=== PATIENT | male | born 1965 | race Caucasian/White ===

== ENCOUNTER 2020-11-11 10:01 | Emergency (ER) | payer MEDICARE, MEDICAID ==
[~2020-11-11] VITALS: Ht 175.3 cm; Wt 120.5 kg
[2020-11-11 10:04] VITALS: Ht 175.3 cm; Wt 120.5 kg
[2020-11-11] MEDS ORDERED: AMBIEN5 MG PO (10:10)
[2020-11-11] MEDS ORDERED: BENZTROPINE MESY2 MG PO (10:11)
[2020-11-11] MEDS ORDERED: ATIVAN2 MG IM (10:11)
[2020-11-11] MEDS ORDERED: CYMBALTA30 MG PO (10:12)
[2020-11-11] MEDS ORDERED: DIASTAT ACUDIAL10 MG RC (10:13)
[2020-11-11] MEDS ORDERED: DEPAKOTE500 MG PO (10:13)
[2020-11-11] MEDS ORDERED: STOOL SOFTENER100 M1 PO (10:14)
[2020-11-11] MEDS ORDERED: PROVERA10 MG PO (10:14)
[2020-11-11] MEDS ORDERED: ERGOCALCIF50000 UNIT PO (10:14)
[2020-11-11] MEDS ORDERED: EC-NAPROSYN500 MG PO (10:15)
[2020-11-11] MEDS ORDERED: OMEPRAZOLE20 M1 PO (10:15)
[2020-11-11] MEDS ORDERED: RISPERDAL1 MG PO (10:16)
[2020-11-11] MEDS ORDERED: TEGRETOL XR100 MG PO (10:17)
[2020-11-11] MEDS ORDERED: SEROQUEL400 MG PO (10:17)
[2020-11-11] MEDS ORDERED: TOPAMAX200 MG PO (10:18)
[2020-11-11] MEDS ORDERED: VALIUM10 MG PO (10:18)
[2020-11-11] MEDS ORDERED: VITAMIN C500 M1 PO (10:19)
[2020-11-11] MEDS ORDERED: VIMPAT100 MG PO (10:19)
[2020-11-11] MEDS ORDERED: VITAMIN D-32000 UNIT PO (10:20)
[2020-11-11] MEDS ORDERED: TEGRETOL200 MG PO (10:23)
[2020-11-11] MEDS ORDERED: SEROQUEL100 MG PO (10:24)
[2020-11-11 10:31] LABS: CALC OSMOLALITY 285 mosm/kg (275-300); CALCIUM 8.7 mg/dL (8.5-10.1); CARBON DIOXIDE 25.6 mmol/L (21.0-32.0); CHLORIDE - SERUM 108 mmol/L (98-107); CREATININE - SERUM 1.2 mg/dL (0.6-1.3); GLUCOSE 88 mg/dL (74-106); POTASSIUM - SERUM 4.1 mmol/L (3.5-5.1); SODIUM 142 mmol/L (136-145); UREA NITROGEN 23 mg/dL (7-18); eGFR NON AFRICAN AMERICAN 67 mL/min (90-120)
[2020-11-11 10:32] LABS: BASOPHILS 0.5 % (0-2); HEMATOCRIT 38.1 % (42.0-54.0); IMMATURE GRANULOCYTES 0.7 % (0-5); LYMPHOCYTE ABS# 1.77 10x3/uL (1.32-3.57); LYMPHOCYTES 29.9 % (15-50); MCH 32.1 pg (26.0-34.0); MCHC 34.1 g/dL (31.0-37.0); MCV 94.1 fL (80.0-100.0); MEAN PLATELET VOLUME 9.2 fL (7.4-10.4); MONOCYTES 7.4 % (2-11); NEUTROPHIL ABS# 3.58 10x3/uL (1.78-5.38); NEUTROPHILS 60.5 % (40-80); RBC 4.05 10x6/uL (4.20-6.10); RDW 12.8 % (11.5-14.5); WBC 5.9 10x3/uL (4.8-10.8)
[2020-11-11 10:34] LABS: PLATELET COUNT 197 10x3/uL (130-400)
[2020-11-11 10:48] LABS: ALBUMIN 3.9 g/dL (3.4-5.0); ALKALINE PHOSPHATASE 104 U/L (30-120); ALT (SGPT) 16 U/L (10-68); BILIRUBIN - TOTAL 0.41 mg/dL (0.2-1.3); CARBAMAZEPINE (TEGRETOL) 6.5 ug/mL (4.0-12.0); CKMB 1.9 U/L (0.0-3.6); CREATINE KINASE 213 UL (21-232); MAGNESIUM - SERUM 2.1 mg/dL (1.8-2.4); PROTEIN - SERUM 7.2 g/dL (6.4-8.2); THYROID STIMULATING HORMONE 0.56 uIU/mL (0.36-3.74); TROPONIN-I < 0.017 ng/mL (0.000-0.060); VALPROIC ACID (DEPAKOTE) 52.7 ug/mL (50.0-100.0)
[2020-11-11 11:59] LABS: UDS - AMPHET NEGATIVE QUAL (NEGATIVE); UDS - BARB NEGATIVE QUAL (NEGATIVE); UDS - BENZO POSITIVE QUAL (NEGATIVE); UDS - COCAINE NEGATIVE QUAL (NEGATIVE); UDS - THC NEGATIVE QUAL (NEGATIVE)
[2020-11-11 12:11] LABS: UDS - OPIATE NEGATIVE QUAL (NEGATIVE); UDS - PCP NEGATIVE QUAL (NEGATIVE)
[2020-11-11 12:17] LABS: AMORPHOUS SEDIMENT <1+ LPF (NONE SEEN); BACTERIA FEW HPF (NONE SEEN); BILIRUBIN NEGATIVE (NEGATIVE); KETONE SMALL mg/dL (NEGATIVE); NITRITE NEGATIVE (NEGATIVE); SQUAMOUS EPITHELIAL OCC HPF (0-4); UROBILINOGEN 4 mg/dL (< 2); WHITE CELLS - URINE RARE HPF (0-1)
[2020-11-11 14:28] VITALS: BP 134/89
== END 2020-11-11 14:27 ==
LOC: D.ER 10:01
PROVIDERS: Family Medicine
DX: F20.9 Schizophrenia, unspecified (principal); R41.82 Altered mental status, unspecified; G40.909 Epilepsy, unspecified, not intractable, without status epilepticus; R53.1 Weakness; T50.905A Adverse effect of unspecified drugs, medicaments and biological substances, initial encounter

== ENCOUNTER 2020-11-16 11:10 | Inpatient (IN) | payer MEDICARE, MEDICAID ==
[~2020-11-16] VITALS: Ht 175.3 cm; Wt 90.7 kg
[~2020-11-16 11:10] MED LIST: AMBIEN5 MG PO; ATIVAN2 MG IM; BENZTROPINE MESY2 MG PO; CYMBALTA30 MG PO; DEPAKOTE500 MG PO; DIASTAT ACUDIAL10 MG RC; EC-NAPROSYN500 MG PO; ERGOCALCIF50000 UNIT PO; OMEPRAZOLE20 M1 PO; PROVERA10 MG PO; RISPERDAL1 MG PO; SEROQUEL100 MG PO; SEROQUEL400 MG PO; STOOL SOFTENER100 M1 PO; TEGRETOL XR100 MG PO; TEGRETOL200 MG PO; TOPAMAX200 MG PO; VALIUM10 MG PO; VIMPAT100 MG PO; VITAMIN C500 M1 PO; VITAMIN D-32000 UNIT PO
[2020-11-16 11:50] LABS: BASOPHILS 0.6 % (0-2); EOSINOPHILS 1.1 % (0-7); HEMATOCRIT 37.7 % (42.0-54.0); HEMOGLOBIN 13.2 g/dL (13.5-17.5); LYMPHOCYTES 35.4 % (15-50); MCH 32.1 pg (26.0-34.0); MCV 91.7 fL (80.0-100.0); MEAN PLATELET VOLUME 10.3 fL (7.4-10.4); MONOCYTES 9.3 % (2-11); NEUTROPHIL ABS# 3.26 10x3/uL (1.78-5.38); NEUTROPHILS 52.6 % (40-80); PLATELET COUNT 213 10x3/uL (130-400); RBC 4.11 10x6/uL (4.20-6.10); RDW 12.5 % (11.5-14.5); WBC 6.2 10x3/uL (4.8-10.8)
[2020-11-16 12:02] LABS: CALC OSMOLALITY 273 mosm/kg (275-300); CALCIUM 8.3 mg/dL (8.5-10.1); CARBON DIOXIDE 23.2 mmol/L (21.0-32.0); CHLORIDE - SERUM 104 mmol/L (98-107); GLUCOSE 84 mg/dL (74-106); SODIUM 136 mmol/L (136-145); UREA NITROGEN 20 mg/dL (7-18); eGFR NON AFRICAN AMERICAN 83 mL/min (90-120)
--- NOTE | 2020-11-16 12:05 | NUR ---
ASSIST PT TO SIDE OF BED FOR URINE SAMPLE
[2020-11-16 12:07] LABS: APTT 31.4 SECONDS (22.8-39.4); INR 1.09 (0.85-1.17); PROTIME 13.1 SECONDS (11.6-15.0)
[2020-11-16 12:15] LABS: BILIRUBIN NEGATIVE (NEGATIVE); KETONE SMALL mg/dL (NEGATIVE); NITRITE NEGATIVE (NEGATIVE); UROBILINOGEN 4 mg/dL (< 2)
[2020-11-16 12:18] LABS: ALBUMIN 3.9 g/dL (3.4-5.0); ALKALINE PHOSPHATASE 99 U/L (30-120); ALT (SGPT) 21 U/L (10-68); BILIRUBIN - TOTAL 0.44 mg/dL (0.2-1.3); CKMB 1.5 U/L (0.0-3.6); CREATINE KINASE 82 UL (21-232); PROTEIN - SERUM 7.1 g/dL (6.4-8.2); THYROID STIMULATING HORMONE 0.87 uIU/mL (0.36-3.74)
[2020-11-16 12:20] LABS: TROPONIN-I < 0.017 ng/mL (0.000-0.060)
[2020-11-16 12:39] LABS: UDS - AMPHET NEGATIVE QUAL (NEGATIVE); UDS - BARB NEGATIVE QUAL (NEGATIVE); UDS - BENZO POSITIVE QUAL (NEGATIVE); UDS - COCAINE NEGATIVE QUAL (NEGATIVE); UDS - OPIATE NEGATIVE QUAL (NEGATIVE); UDS - PCP NEGATIVE QUAL (NEGATIVE); UDS - THC NEGATIVE QUAL (NEGATIVE)
--- NOTE | 2020-11-16 13:58 | NUR ---
PT REPORT GIVEN TO TRENT GUAMAN, WITH VERBAL AKNOWLEDGEMENT OBTAINED.
[2020-11-16] MEDS ORDERED: CYMBALTA60 MG PO (14:28)
[2020-11-16] MEDS ORDERED: NAPROSYN500 MG PO (14:33)
[2020-11-16] MEDS ORDERED: AMBIEN10 MG PO (14:36)
[2020-11-16] MEDS ORDERED: RISPERDAL1 MG PO (14:37)
[2020-11-16] MEDS ORDERED: ERGOCALCIF50000 UNIT PO (14:39)
--- NOTE | 2020-11-16 14:40 | NUR ---
VERIFIED MEDICATIONS WITH PATIENT'S PHARMACY [facility].
--- NOTE | 2020-11-16 15:03 | NUR ---
SPOKE WITH OBI GUAMAN AT [facility], WHERE PATIENT LIVES, WHO GAVE BACKGROUND ON PATIENT. STATES PATIENT HAS HAD AN INCREASED AMOUNT OF SEIZURES AND FALLS OVER THE PAST TWO WEEKS. 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 SPOKE WITH DR LONG TO INFORM HIM OF BACKGROUND. DR LONG STATES THAT HE DOESN'T PLAN TO DO IMAGING AND WILL PROBABLY NEED TO SPEAK WITH DR FIGUEROA WHO IS PATIENT'S MCC DOCTOR ABOUT MEDICATIONS. STATES WILL LIKELY SEE PATIENT TOMORROW. THINKS PATIENT MAY NOT BE HAVING SEIZURES BUT THAT "THIS MIGHT BE HIS SCHIZOPHRENIA."
--- NOTE | 2020-11-16 15:15 | NUR ---
PATIENT APPEARS AGGITATED AND GETTING UP OOB. TWO NURSES IN ROOM ASSISTING PATIENT. CLEANED AND PLACED IN GOWN. HELPED BACK TO BED. DENIES FURTHER NEEDS. ALARM ON.
[2020-11-16 15:17] VITALS: BP 143/84; BMI 29.6
--- NOTE | 2020-11-16 15:33 | NUR ---
PATIENT AGGRESSIVE BUT NOT COMBATIVE. REFUSING TO SIT DOWN. STANDING IN DOORWAY. THREE NURSES TRYING TO CALM AND REDIRECT PATIENT WITHOUT SUCCESS. SPOKE WITH DR FIGUEROA WHO GAVE ORDERS FOR DANIELA BED AND PRN ATIVAN.
--- NOTE | 2020-11-16 16:00 | NUR ---
ASSESSMENT PER FLOW SHEET. PATIENT IS WITHOUT DISRESS. PATIENT BECAME ANGRY AND JERKING AWAY FROM STAFF WHEN TRYING TO ASSIST HIM. CALLED MORE STAFF TO ROOM TO ASSIST AFTER PATIENT PUSHED ME OUT OF BATHROOM AND SLAMMED DOOR. HIS IV HAS BEEN PULLED OUT WITH CATH TIP INTACT. PATIENT REFUSES TO GET BACK IN BED OR SIT IN CHAIR. OMI GAGE RN HAS SPOKEN WITH DR FIGUEROA AND ORDERS HAVE BEEN RECIEVED AND INITIATED.
--- NOTE | 2020-11-16 16:07 | NUR ---
PATIENT PLACED IN DANIELA BED AND PRN ATIVAN GIVEN.
--- NOTE | 2020-11-16 16:38 | NUR ---
PATIENT PULLED OUT IV TO RIGHT HAND. STATES "WHY WOULD I WANT THAT." PATIENT ALSO TOOK OFF SCDS AND STATES "TAKE THESE OUT." IV CATH AND J LOOP REMOVED FROM DANIELA BED WELL SCD STOCKINGS.
--- NOTE | 2020-11-16 18:19 | NUR ---
FAXED ORDERS FOR NEW MEDS TO [facility], PER REQUEST TO BE ABLE TO BRING MEDS TO FLOOR.
[2020-11-16 19:53] VITALS: BP 138/81
--- NOTE | 2020-11-16 23:28 | NUR ---
UNZIPPED BED. GAVE PT NIGHTTIME MEDS. OFFERED TOILETING AND DRINK. CALL LIGHT IN REACH.
[2020-11-17 00:22] VITALS: BP 129/74
[2020-11-17 04:52] VITALS: BP 123/83
[2020-11-17 06:21] LABS: BASOPHILS 0.8 % (0-2); EOSINOPHILS 1.3 % (0-7); HEMATOCRIT 38.7 % (42.0-54.0); HEMOGLOBIN 13.6 g/dL (13.5-17.5); IMMATURE GRANULOCYTES 0.8 % (0-5); LYMPHOCYTE ABS# 2.21 10x3/uL (1.32-3.57); MCH 32.2 pg (26.0-34.0); MCHC 35.1 g/dL (31.0-37.0); MCV 91.5 fL (80.0-100.0); MEAN PLATELET VOLUME 11.3 fL (7.4-10.4); NEUTROPHIL ABS# 2.99 10x3/uL (1.78-5.38); NEUTROPHILS 50.1 % (40-80); RBC 4.23 10x6/uL (4.20-6.10); RDW 12.5 % (11.5-14.5)
[2020-11-17 06:37] LABS: PLATELET COUNT 128 10x3/uL (130-400)
--- NOTE | 2020-11-17 09:03 | NUR ---
assisted patient to restroom, opened nic bed so patient can eat, he wants to "go back home" told patient i am waiting for orders before we can send him back. no other needs at this time, continue with plan of care
[2020-11-17 09:22] VITALS: BP 127/80
[2020-11-17 09:24] LABS: ALKALINE PHOSPHATASE 101 U/L (30-120); ALT (SGPT) 20 U/L (10-68); BILIRUBIN - TOTAL 0.53 mg/dL (0.2-1.3); CALC OSMOLALITY 276 mosm/kg (275-300); CALCIUM 8.6 mg/dL (8.5-10.1); CARBON DIOXIDE 20.9 mmol/L (21.0-32.0); CHLORIDE - SERUM 106 mmol/L (98-107); GLUCOSE 94 mg/dL (74-106); POTASSIUM - SERUM 4.4 mmol/L (3.5-5.1); PROTEIN - SERUM 7.2 g/dL (6.4-8.2); SODIUM 138 mmol/L (136-145); UREA NITROGEN 16 mg/dL (7-18)
[2020-11-17 09:29] LABS: CREATININE - SERUM 0.7 mg/dL (0.6-1.3); eGFR NON AFRICAN AMERICAN > 90 mL/min (90-120)
--- NOTE | 2020-11-17 12:30 | NUR ---
PATIENT ASLEEP WHEN DR LONG WENT TO SPEAK TO HIM, NO SIGNS OF DISTRESS, CALL LIGHT IN REACH WILL WAKE PATIENT FOR LUNCH. CONTINUE WITH PLAN OF CARE
[2020-11-17 14:42] VITALS: BP 120/74
--- NOTE | 2020-11-17 14:49 | NUR ---
I have reviewed this patient and I concur with the Shift Assessment completed by the Licensed Practical Nurse today this shift.
[2020-11-17 18:55] VITALS: BP 127/83
[2020-11-17 20:00] VITALS: BP 125/77
--- NOTE | 2020-11-17 21:52 | NUR ---
PT ASLEEP, YET EASY TO WAKE UP, IN DANIELA BED. NO COMPLAINTS OF PAIN NOR DISTRESS NOTED. PT IS CONFUSED. TOOK MEDS WHOLE WITH NO DIFFICULTY. BED IN LOWEST POSITION WITH CALL RANDALL LIGHT IN REACH.
[2020-11-18] VITALS: BP 98/68
[2020-11-18 04:00] VITALS: BP 118/73
--- NOTE | 2020-11-18 09:00 | NUR ---
ASSISTED PATIENT UP TO RESTROOM, CHANGED LINENS IN BED, PATIENT ATE BREAKFAST AND TOOK MORNING MEDICATIONS, THEN WENT BACK TO SLEEP MORNING MEDICATIONS INCLUDED VALIUM. CONTINUE WITH PLAN OF CARE
[2020-11-18 09:34] VITALS: BP 126/90
[2020-11-18] MEDS ORDERED: TEGRETOL200 MG PO (10:37)
--- NOTE | 2020-11-18 12:02 | MORECARE ---
CASE MANAGEMENT DISCHARGE SUMMARY PATIENT: ANDREZ MEJIA UNIT: [id number] ADM DATE: 11/16/20 AGE: 55 : 67 SEX: M ROOM/BED: D.2217 AUTHOR: SURYA,DOC PHYSICIAN: REFERRING PHYSICIAN: JESUS ALBERTO QUIÑONES MD DATE OF SERVICE: 11/18/20 Case Management Discharge Planning Summary COMMENTS ENTERED DATE: 11/18/20 11:55 CT COMMENT TYPE: Discharge Planning REVIEWER: Diana Andujar CM was unable to visit with patient, per the patients nurse he is going to the bathroom by himself and is ambulatory. His medications were adjusted by Dr Veliz and the patient is asking when he can go home. I called [facility] and they stated that he is a long-term resident and his nurse will be Shagufta. They will pick him up at 1400 today. I will fax clinicals over and Holli Gann will call report DCP REVIEW SUMMARY ANTICIPATED D/C DATE: EXPECTED LOS : CASE STATUS: DCP Initiated INITIAL REVIEW: 11/16/2020 INITIAL REVIEWER: Diana Andujar FINAL DISCHARGE DISPOSITION: 92 : Discharged/Trans to a nursing facility certified under Medicaid but not certified under Medicare FINAL REVIEWER: FINAL REVIEW DATE: D[facility] Questions & Answers QUESTION: ANSWER : PATIENT: ANDREZ MEJIA ENCOUNTER: [id number] MEDICAL RECORD#: [id number] ADMISSION DATE: 11/16/2020 DISCHARGE DATE: ATTENDING MD: DAX: AGE: 55 MARITAL STATUS: S DC PLAN ID: [id number] FACILITY: [facility] PRINTED ON: 11/18/20 12:02 CT All edits/amendments must be made on the electronic document DICTATION DATE: 11/18/201201 ORDER DISPATCHER CHIEF: PORSHA 11/18/20 120 RPT#: [id number] DC DATE: STATUS: ADM IN [facility] [address] [place] [address] END OF REPORT
--- NOTE | 2020-11-18 12:59 | NUR ---
I have reviewed this patient and I concur with the Shift Assessment completed by the Licensed Practical Nurse today this shift.
--- NOTE | 2020-11-18 13:19 | NUR ---
PATIENT IS STILL VERY SEDATED WILL CALL REPORT AND SEE IF THEY CAN WAIT TO PICK PATIENT UP AFTER PICKUP TIME OF 2
[2020-11-18 13:23] VITALS: BP 115/83
--- NOTE | 2020-11-18 14:31 | MORECARE ---
CASE MANAGEMENT DISCHARGE SUMMARY PATIENT: ANDREZ MEJIA UNIT: [id number] ADM DATE: 11/16/20 AGE: 55 : 67 SEX: M ROOM/BED: D.2217 AUTHOR: SURYA,DOC PHYSICIAN: REFERRING PHYSICIAN: JESUS ALBERTO QUIÑONES MD DATE OF SERVICE: 11/18/20 Case Management Discharge Planning Summary COMMENTS ENTERED DATE: 11/18/20 14:17 CT COMMENT TYPE: Discharge Planning REVIEWER: Diana Andujar PER PATIENTS NURSE HE WILL NEED TO BE OUT OF THE DANIELA BED FOR 48 HOURS PRIOR TO DISCHARGE PATIENTS DISCHARGE WILL NEED TO BE ON HOLD TILL THIS CAN HAPPEN ENTERED DATE: 11/18/20 11:55 CT COMMENT TYPE: Discharge Planning REVIEWER: Diana Andujar CM was unable to visit with patient, per the patients nurse he is going to the bathroom by himself and is ambulatory. His medications were adjusted by Dr Veliz and the patient is asking when he can go home. I called [facility] and they stated that he is a long-term resident and his nurse will be Shagufta. They will pick him up at 1400 today. I will fax clinicals over and Holli Gann will call report DCP REVIEW SUMMARY ANTICIPATED D/C DATE: EXPECTED LOS : CASE STATUS: DCP Initiated INITIAL REVIEW: 11/16/2020 INITIAL REVIEWER: Diana Andujar FINAL DISCHARGE DISPOSITION: 92 : Discharged/Trans to a nursing facility certified under Medicaid but not certified under Medicare FINAL REVIEWER: FINAL REVIEW DATE: [facility] Questions & Answers QUESTION: ANSWER : PATIENT: ANDREZ MEJIA ENCOUNTER: [id number] MEDICAL RECORD#: [id number] ADMISSION DATE: 11/16/2020 DISCHARGE DATE: ATTENDING MD: DAX: AGE: 55 MARITAL STATUS: S DC PLAN ID: [id number] FACILITY: [facility] PRINTED ON: 11/18/20 14:31 CT All edits/amendments must be made on the electronic document DICTATION DATE: 11/18/201430 TELEGRAPH EDITOR: PORSHA 11/18/201430 RPT#: [id number] DC DATE: STATUS: ADM IN [facility] [address] [facility] [place] [id number] END OF REPORT
[2020-11-18 18:55] VITALS: BP 115/79
[2020-11-18 20:00] VITALS: BP 117/82
[2020-11-19 04:00] VITALS: BP 130/84; BP 1300/84
--- NOTE | 2020-11-19 06:43 | NUR ---
THE TECHS WERE WALKING FROM A ROOM HEARD THE BED ALARM AND HEARD A THUD LOOKED AND PATIENT WAS ON HIS KNEES ON THE FLOOR. THEY CALLED FOR ASSISTANCE, WE HELPHIM BACK TO BED. I CHECKED HIM FOR INJURIES, HE DENIED PAIN, THERE WERE NO VISIBLE INJURIES. I NOTIFIED DR. QUIÑONES, SHE SAID TO PUT ICE ON HIS KNEES. I TRIED AND HE BECAME ANGRY AND SAID HE DID NOT WANT THE ICE, IT WAS TOO COLD. HE IS CURRENTLY RESTING IN BED WITH JIS EYES CLOSED.
--- NOTE | 2020-11-19 07:15 | NUR ---
ASSISTED PATIENT TO RESTROOM AFTER BED ALARM STARTED ALARMING, PATIENT UP ON SIDE OF BED STATED HE NEEED TO USE BATHROOM BAD AND I WAS NOT FAST ENOUGH. ATTEMPTED TO ASSIST PATIENT TO STANDING POSITION, PATIENT SWATTED AT MY HAND STATED " LET ME DO IT YOU NEVER LET ME DO IT" STOOD BACK AND ATTEMPTED TO ASSIST PATIENT MUCH POSSIBLE, THE MORE I TRIED TO ASSIST THE MORE HE GOT UPSET, FINALLY GOT PATIENT TO USE RESTROOM AND ASSIST BACK INTO BED. CONTINUE WITH PLAN OF CARE
[2020-11-19 08:49] VITALS: BP 121/81
--- NOTE | 2020-11-19 08:50 | NUR ---
PATIENT UP IN RESTROOM THIS MORNING, STATES HE IS ONLY HAVING WATERY STOOLS IF URINATING FROM OTHER END, STATED HE DID NOT NEED PAIN MEDICATION LAST NIGHT HE IS NOT HURTING BUT MORE OF JUST BEING UNCOMFORTABLE. STUDY TO BE DONE THIS MORNING IN MEDICAL IMAGING, NO NEEDS VOICED, CONTINUE WITH PLAN OF CARE
[2020-11-19 12:19] VITALS: BP 109/51
[2020-11-19 13:34] VITALS: Ht 175.3 cm; Wt 90.7 kg
--- NOTE | 2020-11-19 13:52 | NUR ---
I have reviewed this patient and I concur with the Shift Assessment completed by the Licensed Practical Nurse today this shift.
[2020-11-19 18:40] VITALS: BP 141/84
[2020-11-19 20:00] VITALS: BP 138/83
[2020-11-20] VITALS: BP 111/67
[2020-11-20 04:00] VITALS: BP 126/84
--- NOTE | 2020-11-20 08:02 | NUR ---
PATIENT WAS LETHARGIC THIS SHIFT, SO EVENING MEDS NOT GIVEN
[2020-11-20 08:42] VITALS: BP 101/70
[2020-11-20] MEDS ORDERED: NAPROXEN250 MG PO (13:29)
[2020-11-20] MEDS ORDERED: PROVERA2.5 MG PO (13:29)
[2020-11-20] MEDS ORDERED: SEROQUEL100 MG PO (13:29)
[2020-11-20] MEDS ORDERED: VIMPAT100 MG PO (13:29)
[2020-11-20] MEDS ORDERED: DEPAKOTE500 MG PO (13:29)
[2020-11-20] MEDS ORDERED: TEGRETOL200 MG PO (13:29)
[2020-11-20] MEDS ORDERED: BENZTROPINE MESY1 MG PO (13:29)
[2020-11-20] MEDS ORDERED: ATIVAN IM (13:29)
[2020-11-20] MEDS ORDERED: ERGOCALCIF50000 UNIT PO (13:29)
[2020-11-20] MEDS ORDERED: RISPERDAL1 MG PO (13:29)
[2020-11-20] MEDS ORDERED: CYMBALTA30 MG PO (13:29)
[2020-11-20] MEDS ORDERED: TOPAMAX100 MG PO (13:29)
[2020-11-20] MEDS ORDERED: VALIUM5 MG PO (13:29)
[2020-11-20 14:04] VITALS: BP 116/80
--- NOTE | 2020-11-20 15:02 | MORECARE ---
CASE MANAGEMENT DISCHARGE SUMMARY PATIENT: ANDREZ MEJIA UNIT: [id number] ADM DATE: 11/16/20 AGE: 55 : 67 SEX: M ROOM/BED: D.2217 AUTHOR: SURYA,DOC PHYSICIAN: REFERRING PHYSICIAN: JESUS ALBERTO QUIÑONES MD DATE OF SERVICE: 11/20/20 Case Management Discharge Planning Summary COMMENTS ENTERED DATE: 11/20/20 14:59 CT COMMENT TYPE: Discharge Planning REVIEWER: Diana Dowlingken PATIENT WILL BE DISCHARGING BACK TO [facility] TODAY IN A CARE HOME BED. PER THE CARE HOME HE WILL NEED TO GO VIA EMS BECAUSE HE WILL NOT SIT IN A WHEELCHAIR. THE NURSE WILL CALL REPORT. I ATTEMPTED TO EXPLAIN TO THE PATIENT ABOUT THE IMM, HE DID NOT UNDERSTAND ME AND WAS UNABLE TO SIGN. HIS NURSE SIGNED THE IMM AND A COPY WAS PLACED IN HIS DISCHARGE PAPERWORK I HAVE FAXED DC CLINICALS TO THE CARE HOME AND HE HAS BEEN OUT OF THE DANIELA BED FOR OVER 48 HOURS ENTERED DATE: 11/18/20 14:17 CT COMMENT TYPE: Discharge Planning REVIEWER: Dinaa Andujar PER PATIENTS NURSE HE WILL NEED TO BE OUT OF THE DANIELA BED FOR 48 HOURS PRIOR TO DISCHARGE PATIENTS DISCHARGE WILL NEED TO BE ON HOLD TILL THIS CAN HAPPEN ENTERED DATE: 11/18/20 11:55 CT COMMENT TYPE: Discharge Planning REVIEWER: Diana Con CM was unable to visit with patient, per the patients nurse he is going to the bathroom by himself and is ambulatory. His medications were adjusted by Dr Veliz and the patient is asking when he can go home. I called [facility] and they stated that he is a long-term resident and his nurse will be Shagufta. They will pick him up at 1400 today. I will fax clinicals over and Holli Gann will call report DCP REVIEW SUMMARY ANTICIPATED D/C DATE: EXPECTED LOS : CASE STATUS: DCP Initiated INITIAL REVIEW: 11/16/2020 INITIAL REVIEWER: Diana Andujar FINAL DISCHARGE DISPOSITION: 92 : Discharged/Trans to a nursing facility certified under Medicaid but not certified under Medicare FINAL REVIEWER: FINAL REVIEW DATE: [facility] Questions & Answers QUESTION: ANSWER : PATIENT: ANDREZ MEJIA ENCOUNTER: [id number] MEDICAL RECORD#: [id number] ADMISSION DATE: 11/16/2020 DISCHARGE DATE: ATTENDING MD: DAX: AGE: 55 MARITAL STATUS: S DC PLAN ID: [id number] FACILITY: [facility] PRINTED ON: 11/20/20 15:02 CT All edits/amendments must be made on the electronic document DICTATION DATE: 11/20/201501 ROLLER: PORSHA 11/20/201501 RPT#: [id number] DC DATE: STATUS: ADM IN [facility] [address] [place] [address] END OF REPORT
--- NOTE | 2020-11-20 16:01 | MORECARE ---
CASE MANAGEMENT DISCHARGE SUMMARY PATIENT: ANDREZ MEJIA UNIT: [id number] ADM DATE: 11/16/20 AGE: 55 : 67 SEX: M ROOM/BED: D.2217 AUTHOR: SURYA,DOC PHYSICIAN: REFERRING PHYSICIAN: JESUS ALBERTO QUIÑONES MD DATE OF SERVICE: 11/20/20 Case Management Discharge Planning Summary COMMENTS ENTERED DATE: 11/20/20 14:59 CT COMMENT TYPE: Discharge Planning REVIEWER: Diana Dowlingken PATIENT WILL BE DISCHARGING BACK TO [facility] TODAY IN A PRISON BED. PER THE SKILL[facility] NURSING HE WILL NEED TO GO VIA EMS BECAUSE HE WILL NOT SIT IN A WHEELCHAIR. THE NURSE WILL CALL REPORT. I ATTEMPTED TO EXPLAIN TO THE PATIENT ABOUT THE IMM, HE DID NOT UNDERSTAND ME AND WAS UNABLE TO SIGN. HIS NURSE SIGNED THE IMM AND A COPY WAS PLACED IN HIS DISCHARGE PAPERWORK I HAVE FAXED DC CLINICALS TO THE [facility] AND HE HAS BEEN OUT OF THE DANIELA BED FOR OVER 48 HOURS ENTERED DATE: 11/18/20 14:17 CT COMMENT TYPE: Discharge Planning REVIEWER: Diana Andujar PER PATIENTS NURSE HE WILL NEED TO BE OUT OF THE DANIELA BED FOR 48 HOURS PRIOR TO DISCHARGE PATIENTS DISCHARGE WILL NEED TO BE ON HOLD TILL THIS CAN HAPPEN ENTERED DATE: 11/18/20 11:55 CT COMMENT TYPE: Discharge Planning REVIEWER: Diana Con CM was unable to visit with patient, per the patients nurse he is going to the bathroom by himself and is ambulatory. His medications were adjusted by Dr Veliz and the patient is asking when he can go home. I called [facility] and they stated that he is a long-term resident and his nurse will be Shagufta. They will pick him up at 1400 today. I will fax clinicals over and Holli Gann will call report DCP REVIEW SUMMARY ANTICIPATED D/C DATE: EXPECTED LOS : CASE STATUS: DCP Initiated INITIAL REVIEW: 11/16/2020 INITIAL REVIEWER: Diana Andujar FINAL DISCHARGE DISPOSITION: 92 : Discharged/Trans to a nursing facility certified under Medicaid but not certified under Medicare FINAL REVIEWER: FINAL REVIEW DATE: [facility] Questions & Answers QUESTION: ANSWER : PATIENT: ANDREZ MEJIA ENCOUNTER: [id number] MEDICAL RECORD#: [id number] ADMISSION DATE: 11/16/2020 DISCHARGE DATE: 11/20/2020 ATTENDING MD: DAX: AGE: 55 MARITAL STATUS: S DC PLAN ID: [id number] FACILITY: [facility] PRINTED ON: 11/20/20 16:00 CT All edits/amendments must be made on the electronic document DICTATION DATE: 11/20/201599 FIELD MARKETING COORDINATOR: PORSHA 11/20/201599 RPT#: [id number] DC DATE:11/20/20 STATUS: DIS IN [facility] [address] [place] [address] END OF REPORT
--- NOTE | 2020-11-21 09:34 | MORECARE ---
CASE MANAGEMENT DISCHARGE SUMMARY PATIENT: ANDREZ MEJIA UNIT: [id number] ADM DATE: 11/16/20 AGE: 55 : 67 SEX: M ROOM/BED: D.2217 AUTHOR: SURYA,DOC PHYSICIAN: REFERRING PHYSICIAN: JESUS ALBERTO QUIÑONES MD DATE OF SERVICE: 11/21/20 Case Management Discharge Planning Summary COMMENTS ENTERED DATE: 11/20/20 14:59 CT COMMENT TYPE: Discharge Planning REVIEWER: Diana Dowlingken PATIENT WILL BE DISCHARGING BACK TO [facility] TODAY IN A CARE HOME BED. PER THE [facility] HE WILL NEED TO GO VIA EMS BECAUSE HE WILL NOT SIT IN A WHEELCHAIR. THE NURSE WILL CALL REPORT. I ATTEMPTED TO EXPLAIN TO THE PATIENT ABOUT THE IMM, HE DID NOT UNDERSTAND ME AND WAS UNABLE TO SIGN. HIS NURSE SIGNED THE IMM AND A COPY WAS PLACED IN HIS DISCHARGE PAPERWORK I HAVE FAXED DC CLINICALS TO THE [facility] AND HE HAS BEEN OUT OF THE DANIELA BED FOR OVER 48 HOURS ENTERED DATE: 11/18/20 14:17 CT COMMENT TYPE: Discharge Planning REVIEWER: iDana Andujar PER PATIENTS NURSE HE WILL NEED TO BE OUT OF THE DANIELA BED FOR 48 HOURS PRIOR TO DISCHARGE PATIENTS DISCHARGE WILL NEED TO BE ON HOLD TILL THIS CAN HAPPEN ENTERED DATE: 11/18/20 11:55 CT COMMENT TYPE: Discharge Planning REVIEWER: Diana Con CM was unable to visit with patient, per the patients nurse he is going to the bathroom by himself and is ambulatory. His medications were adjusted by Dr Veliz and the patient is asking when he can go home. I called [facility] and they stated that he is a long-term resident and his nurse will be Shagufta. They will pick him up at 1400 today. I will fax clinicals over and Holli Gann will call report DCP REVIEW SUMMARY ANTICIPATED D/C DATE: EXPECTED LOS : CASE STATUS: DCP Initiated INITIAL REVIEW: 11/16/2020 INITIAL REVIEWER: Diana Andujar FINAL DISCHARGE DISPOSITION: 92 : Discharged/Trans to a nursing facility certified under Medicaid but not certified under Medicare FINAL REVIEWER: FINAL REVIEW DATE: [facility] Focus Questions & Answers QUESTION: ANSWER : PATIENT: ANDREZ MEJIA ENCOUNTER: [id number] MEDICAL RECORD#: [id number] ADMISSION DATE: 11/16/2020 DISCHARGE DATE: 11/20/2020 ATTENDING MD: DAX: AGE: 55 MARITAL STATUS: S DC PLAN ID: [id number] FACILITY: [facility] PRINTED ON: 11/21/20 9:33 CT All edits/amendments must be made on the electronic document DICTATION DATE: 11/21/20932 ERP SPECIALIST: PORSHA 11/21/20932 RPT#: [id number] DC DATE:11/20/20 STATUS: DIS IN [facility] [address] [place] [address] END OF REPORT
== END 2020-11-20 15:52 | DRG 101 ==
LOC: D.ER 11:10 → D.MS 13:20
PROVIDERS: Family Medicine; ADMIT Emergency Medicine; ATTEND Emergency Medicine
DX: G40.909 Epilepsy, unspecified, not intractable, without status epilepticus (principal); T50.905A Adverse effect of unspecified drugs, medicaments and biological substances, initial encounter; F20.9 Schizophrenia, unspecified; F03.90 Unspecified dementia, unspecified severity, without behavioral disturbance, psychotic disturbance, mood disturbance, and anxiety

== ENCOUNTER 2020-11-25 10:21 | Emergency (ER) | payer MEDICARE, MEDICAID ==
[~2020-11-25] VITALS: Ht 175.3 cm; Wt 100.0 kg
[~2020-11-25 10:21] MED LIST changes: +AMBIEN10 MG PO; +ATIVAN IM; +BENZTROPINE MESY1 MG PO; +CYMBALTA60 MG PO; +NAPROSYN500 MG PO; +NAPROXEN250 MG PO; +PROVERA2.5 MG PO; +TOPAMAX100 MG PO; +VALIUM5 MG PO
[2020-11-25 10:23] VITALS: Ht 175.3 cm; Wt 100.0 kg
[2020-11-25 10:55] LABS: APTT 30.3 SECONDS (22.8-39.4); CALC OSMOLALITY 292 mosm/kg (275-300); CALCIUM 8.6 mg/dL (8.5-10.1); CARBON DIOXIDE 26.3 mmol/L (21.0-32.0); CHLORIDE - SERUM 111 mmol/L (98-107); GLUCOSE 98 mg/dL (74-106); INR 1.1 (0.85-1.17); PROTIME 13.1 SECONDS (11.6-15.0); SODIUM 145 mmol/L (136-145); UREA NITROGEN 25 mg/dL (7-18); eGFR NON AFRICAN AMERICAN 83 mL/min (90-120)
[2020-11-25 11:13] LABS: ALKALINE PHOSPHATASE 95 U/L (30-120); ALT (SGPT) 19 U/L (10-68); BILIRUBIN - TOTAL 0.38 mg/dL (0.2-1.3); CKMB 1.2 U/L (0.0-3.6); CREATINE KINASE 56 UL (21-232); MAGNESIUM - SERUM 2.2 mg/dL (1.8-2.4); PROTEIN - SERUM 7.3 g/dL (6.4-8.2)
[2020-11-25 11:14] LABS: TROPONIN-I < 0.017 ng/mL (0.000-0.060)
[2020-11-25 11:26] LABS: BASOPHILS 1.5 % (0-2); EOSINOPHILS 1.5 % (0-7); HEMATOCRIT 39.5 % (42.0-54.0); HEMOGLOBIN 13.4 g/dL (13.5-17.5); IMMATURE GRANULOCYTES 0.8 % (0-5); LYMPHOCYTE ABS# 1.58 10x3/uL (1.32-3.57); LYMPHOCYTES 30.2 % (15-50); MCH 31.8 pg (26.0-34.0); MCHC 33.9 g/dL (31.0-37.0); MCV 93.8 fL (80.0-100.0); MEAN PLATELET VOLUME 10.1 fL (7.4-10.4); MONOCYTES 7.6 % (2-11); NEUTROPHIL ABS# 3.05 10x3/uL (1.78-5.38); NEUTROPHILS 58.4 % (40-80); RBC 4.21 10x6/uL (4.20-6.10); WBC 5.2 10x3/uL (4.8-10.8)
[2020-11-25 11:31] LABS: PLATELET COUNT 197 10x3/uL (130-400)
[2020-11-25] MEDS ORDERED: VALIUM5 MG PO (11:38)
[2020-11-25] MEDS ORDERED: DEPAKOTE ER500 MG PO (11:39)
[2020-11-25 13:35] VITALS: BP 127/82
== END 2020-11-25 13:38 ==
LOC: D.ER 10:21
PROVIDERS: Family Medicine
DX: G40.909 Epilepsy, unspecified, not intractable, without status epilepticus (principal); W19.XXXA Unspecified fall, initial encounter; Y93.9 Activity, unspecified; Y92.9 Unspecified place or not applicable; F03.90 Unspecified dementia, unspecified severity, without behavioral disturbance, psychotic disturbance, mood disturbance, and anxiety

== ENCOUNTER 2020-11-26 09:44 | Observation (INO) | payer MEDICARE, MEDICAID ==
[~2020-11-26] VITALS: Ht 175.3 cm; Wt 98.2 kg
[~2020-11-26 09:44] MED LIST changes: +DEPAKOTE ER500 MG PO
[2020-11-26 10:19] LABS: BASOPHILS 0.9 % (0-2); EOSINOPHILS 1.3 % (0-7); HEMATOCRIT 40.7 % (42.0-54.0); HEMOGLOBIN 13.8 g/dL (13.5-17.5); IMMATURE GRANULOCYTES 0.9 % (0-5); LYMPHOCYTE ABS# 1.37 10x3/uL (1.32-3.57); LYMPHOCYTES 24.5 % (15-50); MCH 31.7 pg (26.0-34.0); MCHC 33.9 g/dL (31.0-37.0); MCV 93.3 fL (80.0-100.0); MEAN PLATELET VOLUME 9.8 fL (7.4-10.4); MONOCYTES 8.4 % (2-11); NEUTROPHIL ABS# 3.58 10x3/uL (1.78-5.38); PLATELET COUNT 208 10x3/uL (130-400); RBC 4.36 10x6/uL (4.20-6.10); RDW 12.8 % (11.5-14.5); WBC 5.6 10x3/uL (4.8-10.8)
[2020-11-26 10:23] LABS: CALCIUM 8.9 mg/dL (8.5-10.1); CREATININE - SERUM 1.1 mg/dL (0.6-1.3)
[2020-11-26 10:30] LABS: ALBUMIN 3.9 g/dL (3.4-5.0); BILIRUBIN - TOTAL 0.38 mg/dL (0.2-1.3); PROTEIN - SERUM 7.3 g/dL (6.4-8.2)
[2020-11-26 12:53] LABS: AMORPHOUS SEDIMENT <1+ LPF (NONE SEEN); BACTERIA FEW HPF (NONE SEEN); BILIRUBIN NEGATIVE (NEGATIVE); KETONE NEGATIVE (NEGATIVE); NITRITE NEGATIVE (NEGATIVE); SQUAMOUS EPITHELIAL RARE HPF (0-4); UROBILINOGEN 4 mg/dL (< 2); WHITE CELLS - URINE NONE SEEN HPF (0-1)
[2020-11-26 12:58] LABS: UDS - AMPHET NEGATIVE QUAL (NEGATIVE); UDS - BARB NEGATIVE QUAL (NEGATIVE); UDS - BENZO POSITIVE QUAL (NEGATIVE); UDS - COCAINE NEGATIVE QUAL (NEGATIVE); UDS - OPIATE NEGATIVE QUAL (NEGATIVE); UDS - PCP NEGATIVE QUAL (NEGATIVE); UDS - THC NEGATIVE QUAL (NEGATIVE)
[2020-11-26 14:32] VITALS: BP 108/88
--- NOTE | 2020-11-26 14:48 | NUR ---
CALLED REPORT TO [facility] AND WAITING ON ADMISSION PACKET.
[2020-11-26 15:00] VITALS: BP 134/88
--- NOTE | 2020-11-26 15:24 | NUR ---
CALLED AIR ANALYSIS ENGINEERING TECHNICIAN FOR THE PACKET, SECOND TIME.
[2020-11-26 15:57] VITALS: BP 108/88; Ht 175.3 cm; Wt 98.2 kg
--- NOTE | 2020-11-26 16:17 | NUR ---
RCVED PT VIA ER STAFF AND HOSPITAL BED. PT ASLEEP, EASILY AROUSED TO SPEECH BUT UNABLE TO ANSWER THE MAJORITY OF QUESTIONS. V/S STABLE AT THIS TIME. IV LOCATED TO LEFT AC WITH NS CURRENTLY RUNNING AT 125ML. BED IN LOW POSITION WITH RAILS UP X 2, ALARM ON. WILL CONT TO MONITOR.
[2020-11-26 16:57] VITALS: BP 108/88
[2020-11-26 20:00] VITALS: BP 125/78
--- NOTE | 2020-11-27 03:34 | NUR ---
PATIENT REFUSED SCD'S, IS, AND HAS BEEN SLEEPING, HE'S IMPULSIVE AND GETS UPSET IF YOU TRY TO ASSIST HIM WHEN HE GETS OUT OF BED, BED ALARM IS ON, HE IS CURRENTLY RESTING IN BED WITH HIS EYES CLOSED.
[2020-11-27 04:00] VITALS: BP 141/68
[2020-11-27 06:10] LABS: BASOPHILS 0.6 % (0-2); EOSINOPHILS 1.5 % (0-7); HEMATOCRIT 40.1 % (42.0-54.0); HEMOGLOBIN 13.7 g/dL (13.5-17.5); IMMATURE GRANULOCYTES 0.6 % (0-5); LYMPHOCYTE ABS# 1.41 10x3/uL (1.32-3.57); LYMPHOCYTES 27.3 % (15-50); MCH 31.4 pg (26.0-34.0); MCHC 34.2 g/dL (31.0-37.0); MEAN PLATELET VOLUME 9.9 fL (7.4-10.4); MONOCYTES 10.1 % (2-11); NEUTROPHILS 59.9 % (40-80); PLATELET COUNT 196 10x3/uL (130-400); RBC 4.36 10x6/uL (4.20-6.10); RDW 12.6 % (11.5-14.5); WBC 5.2 10x3/uL (4.8-10.8)
[2020-11-27 06:38] LABS: ALBUMIN 3.4 g/dL (3.4-5.0); ALKALINE PHOSPHATASE 91 U/L (30-120); ALT (SGPT) 16 U/L (10-68); BILIRUBIN - TOTAL 0.45 mg/dL (0.2-1.3); CALC OSMOLALITY 289 mosm/kg (275-300); CALCIUM 8.5 mg/dL (8.5-10.1); CARBON DIOXIDE 24.5 mmol/L (21.0-32.0); CHLORIDE - SERUM 111 mmol/L (98-107); CREATININE - SERUM 0.9 mg/dL (0.6-1.3); GLUCOSE 94 mg/dL (74-106); PROTEIN - SERUM 6.7 g/dL (6.4-8.2); SODIUM 144 mmol/L (136-145); UREA NITROGEN 21 mg/dL (7-18); eGFR NON AFRICAN AMERICAN > 90 mL/min (90-120)
--- NOTE | 2020-11-27 07:40 | NUR ---
PT IS RESTING IN BED WITH EYES CLOSED. RESPIRATIONS ARE EVEN AND UNLABORED. NO APPARENT S/S OF DISTRESS NOTED. PT IS CONFUSED X 4 AND UNCOOPERATIVE. DANIELA ALARM IS ON AND WORKING. INCENTIVE SPIROMETER AT BEDSIDE AND ENCOURAGED. PT IS UNCOOPERATIVE. BED IS IN THE LOWEST POSITION. CALL LIGHT AND BEDSIDE TABLE ARE WITHIN REACH. SIDE RAILS X 2. PT ROOM CLOSE TO NRUSE STATION. WILL CONT TO MONITOR.
[2020-11-27 08:48] VITALS: BP 114/69
[2020-11-27 12:46] VITALS: BP 145/67
[2020-11-27 17:11] VITALS: BP 159/80
--- NOTE | 2020-11-27 17:33 | NUR ---
ENTERED PT ROOM TO PT IN BED WITH HEAD OVER SIDE RAIL SHAKING WITH HAND IN THE AIR. APPEARANCE OF POSSIBLE SEIZURE LIKE ACTIVITY. PT AROUSABLE WITH VERBAL STIMULATION AND IS CONFUSED PER BASELINE. PT ANSWERS QUESITONING. DR FIGUEROA PAGED TO NOTIFY. PT IS SITTING IN BED WITH HOB AT 45 DEGREES EATING DINNER TRAY WITH ASSISTANCE FROM JEFF CANALES RN. PT WITHOUT APPEARANCE OF DIFFICULTY WITH EATING/SWALLOWING AT THIS TIME. FALL PRECAUTIONS IN PLACE. BED IS IN THE LOWEST POSITION. CALL LIGHT AND BEDSIDE TABLE ARE WITHIN REACH. SIDE RAILS X 2. ROOM CLOSE TO NURSE STATION. WILL CONT TO MONITOR.
--- NOTE | 2020-11-27 17:56 | NUR ---
DR FIGUEROA RETURNS PAGE AND WAS NOTIFIED OF PT ACTIVITY AND CURRENT STATE. TELEPHONE ORDERS RECD ARE VALIUM 5MG IV Q6 HOURS PRN FOR SEIZURE ACITIVITY. WILL PLACE ORDER AND CONT TO MONITOR PT. CURRENTLY PT IS AWAKE AND SITTING IN BED CALM AND CONFUSED X 4. NO APPARENT SIGNS OF SEIZURE LIKE ACITIVITY AT THIS TIME. FALL PRECAUTIONS IN PLACE. BED IS IN THE LOWEST POSITION. CALL LIGHT AND BEDSIDE TABLE ARE WITHIN REACH. SIDE RAILS X 2. ROOM CLOSE TO NURSE STATION. WILL CONT TO MONITOR.
--- NOTE | 2020-11-28 02:26 | NUR ---
ASSESSED AT THE BEGINNING OF THE SHIFT. PT IS ALERT AND CONFUSED. HE IS VERBAL AND ANSWERS QUESTIONS BUT WHEN HE HAS TO USE THE URINAL HE BECOMES UPSET AND WE ARE NOT FAST ENOUGH FOR HIM. AT THAT TIME HE TRYS TO GET UP.HE DOES HAVE A BED ALARM IN PLACE. AT HS HE WAS ABLE TO SWALLOW ALL HIS MEDS WITHOUT PROBLEM. HE IS ABLE TO MAKE HIMSELF UNDERSTOOD BUT AFTER TAKING HIS MEDS AND VOIDING HE WENT BACK TO SLEEP. HE IS CLOSE TO THE NURSES STATION AND WE CAN HEAR HIM EASILY.
--- NOTE | 2020-11-28 07:45 | NUR ---
ALERT AND ORIENTED TO SELF ONLY. BED LOW. BED ALARM ON. CALL RANDALL AND PERSONAL ITEMS IN REACH. WILL CONTINUE TO MONITOR.
[2020-11-28 08:00] VITALS: BP 119/82
--- NOTE | 2020-11-28 09:00 | NUR ---
PATIENT OOB AND PULLING AT IV LINE FOR SECOND TIME THIS AM. PAGED.
--- NOTE | 2020-11-28 09:39 | NUR ---
PATIENT UP STUMBLING AROUND ROOM FOR A THIRD TIME AND PULLING AT IV LINES. TOOK THREE PEOPLE TO ASSIST PATIENT BACK TO BED. DOES NOT FOLLOW DIRECTIONS WELL AT ALL. PAGED FOR SECOND TIME.
--- NOTE | 2020-11-28 09:51 | NUR ---
PATIENT UP FOR FOURTH TIME STUMBLING AROUND ROOM. PULLED OUT IV. ASSISTED BACK TO BED AGAIN. CLEANED BLOOD OFF PATIENT AND BED.
--- NOTE | 2020-11-28 10:00 | NUR ---
PATIENT PLACED IN DANIELA BED PER ORDER.
[2020-11-28 11:00] VITALS: BP 119/72
--- NOTE | 2020-11-28 12:28 | NUR ---
PATIENT ASSISTED OOB TO BATHROOM AND BACK. LUNCH TRAY SET UP FOR PATIENT. DENIES NEEDS.
--- NOTE | 2020-11-28 14:20 | NUR ---
PATIENT HAS NOT ATTEMPTED TO GET OOB SINCE BED UNZIPPED. SPOKE WITH DR QUIÑONES WHO QUESTIONS IF DANIELA IS NECESSARY AT THIS TIME. PATIENT MOVED TO REGULAR BED. EDUCATION PROVIDED TO PATIENT TO STAY IN BED AND CALL FOR HELP. DANIELA ALARM PLACED ON PATIENT. VERBALIZES UNDERSTANDING AND IS COOPERATIVE AT THIS TIME.
[2020-11-28 15:00] VITALS: BP 120/76
--- NOTE | 2020-11-28 16:24 | NUR ---
PATIENT ASSISTED UP TO CHAIR AT BEDSIDE PER REQUEST. ALARM IN CHAIR. FEET RECLINED AND BLANKETS GIVEN. CALL RANDALL IN REACH.
--- NOTE | 2020-11-28 17:32 | NUR ---
PATIENT ASSISTED BACK TO BED D/T REPEATEDLY GETTING OUT OF CHAIR AND STUMBLING TO DOOR. SIDE RAILS UP X 3. ALARM ON.
--- NOTE | 2020-11-28 20:00 | NUR ---
PATIENT UP UNASSISTED TO BATHROOM AND ATTEMPTING TO RETURN TO BED WHEN NURSE ARRIVED IN ROOM. PATIENT STUMBLED AND FELL SIDEWAYS,JUMPED BACK UP AND PUT SELF IN BED. NO INJURIES NOTED. DR FIGUEROA AND SKIVER WELT END NOTIFIED. BED ALARM ON AND FUNCTIONING.NON SKID SOCKS ON. CL IN REACH. REMINDED PATIENT TO USE CALL LIGHT WHEN HE NEEDS TO USE BATHROOM.
[2020-11-28 20:35] VITALS: BP 150/84
--- NOTE | 2020-11-28 23:38 | NUR ---
I have reviewed this patient and I concur with the Shift Assessment completed by the Licensed Practical Nurse today this shift.
[2020-11-29 05:53] VITALS: BP 126/72
[2020-11-29 08:52] VITALS: BP 126/76
[2020-11-29 11:45] VITALS: BP 118/71
[2020-11-29 16:50] VITALS: BP 120/75
--- NOTE | 2020-11-29 17:47 | NUR ---
SITTER REMAINS WITH PT DUE TO FALLS
[2020-11-29 21:16] VITALS: BP 127/79
--- NOTE | 2020-11-29 21:54 | NUR ---
WATCHING TV QUEITLY WITH NO COMPALITNS VOICED. RESP EVEN AND UNLABORED. FALL PRECAUTIONS IN PLACE.SITTER AT BEDSIDE.
--- NOTE | 2020-11-30 00:38 | NUR ---
I have reviewed this patient and I concur with the Shift Assessment completed by the Licensed Practical Nurse today this shift.
[2020-11-30 05:20] LABS: BASOPHILS 0.6 % (0-2); EOSINOPHILS 0.9 % (0-7); HEMATOCRIT 36.5 % (42.0-54.0); HEMOGLOBIN 12.7 g/dL (13.5-17.5); IMMATURE GRANULOCYTES 0.7 % (0-5); LYMPHOCYTE ABS# 2.25 10x3/uL (1.32-3.57); MCH 31.1 pg (26.0-34.0); MCHC 34.8 g/dL (31.0-37.0); MCV 89.5 fL (80.0-100.0); MEAN PLATELET VOLUME 10.3 fL (7.4-10.4); NEUTROPHIL ABS# 4.81 10x3/uL (1.78-5.38); NEUTROPHILS 59.8 % (40-80); PLATELET COUNT 179 10x3/uL (130-400); RBC 4.08 10x6/uL (4.20-6.10); RDW 12.8 % (11.5-14.5)
[2020-11-30 05:49] LABS: CALC OSMOLALITY 279 mosm/kg (275-300); CALCIUM 8.6 mg/dL (8.5-10.1); CARBAMAZEPINE (TEGRETOL) 10.6 ug/mL (4.0-12.0); CARBON DIOXIDE 21.6 mmol/L (21.0-32.0); CHLORIDE - SERUM 106 mmol/L (98-107); CREATININE - SERUM 0.9 mg/dL (0.6-1.3); GLUCOSE 106 mg/dL (74-106); POTASSIUM - SERUM 3.4 mmol/L (3.5-5.1); SODIUM 139 mmol/L (136-145); UREA NITROGEN 19 mg/dL (7-18); VALPROIC ACID (DEPAKOTE) 39.3 ug/mL (50.0-100.0); eGFR NON AFRICAN AMERICAN > 90 mL/min (90-120)
[2020-11-30] MEDS ORDERED: CYMBALTA30 MG PO (08:53)
[2020-11-30] MEDS ORDERED: SEROQUEL200 MG PO (08:55)
[2020-11-30] MEDS ORDERED: RISPERDAL1 MG PO (08:56)
--- NOTE | 2020-11-30 09:26 | MORECARE ---
CASE MANAGEMENT DISCHARGE SUMMARY PATIENT: ANDREZ MEJIA UNIT: [id number] ADM DATE: 11/26/20 AGE: 55 : 67 SEX: M ROOM/BED: D.2220 AUTHOR: SURYA,DOC PHYSICIAN: REFERRING PHYSICIAN: JANE FIGUEROA MD DATE OF SERVICE: 11/30/20 Case Management Discharge Planning Summary DCP REVIEW SUMMARY ANTICIPATED D/C DATE: 11/30/2020 EXPECTED LOS : 4 CASE STATUS: DCP Initiated INITIAL REVIEW: 11/26/2020 INITIAL REVIEWER: Herbert Rincon FINAL DISCHARGE DISPOSITION: : FINAL REVIEWER: FINAL REVIEW DATE: DCP [facility] Questions & Answers QUESTION: ANSWER : PATIENT: ANDREZ MEJIA ENCOUNTER: [id number] MEDICAL RECORD#: [id number] ADMISSION DATE: 11/26/2020 DISCHARGE DATE: ATTENDING MD: JANE WALLER : AGE: 55 MARITAL STATUS: S DC PLAN ID: [id number] FACILITY: [facility] PRINTED ON: 11/30/20 9:26 CT All edits/amendments must be made on the electronic document DICTATION DATE: 11/30/20925 HOME APPRAISER: DM 11/30/20925 RPT#: [id number] DC DATE: STATUS: ADM IN [facility] [address] [place] [address] END OF REPORT
--- NOTE | 2020-11-30 09:37 | MORECARE ---
CASE MANAGEMENT DISCHARGE SUMMARY PATIENT: ANDREZ MEJIA UNIT: [id number] ADM DATE: 11/26/20 AGE: 55 : 67 SEX: M ROOM/BED: D.2220 AUTHOR: SURYA,DOC PHYSICIAN: REFERRING PHYSICIAN: JANE FIGUEROA MD DATE OF SERVICE: 11/30/20 Case Management Discharge Planning Summary COMMENTS ENTERED DATE: 11/30/20 9:27 CT COMMENT TYPE: Discharge Planning REVIEWER: Herbert Rincon CM spoke with Jessy of [facility] and [facility] ([phone]). Jessy is in agreement that patient can return to SNF. Jessy stated that she will arrange transport. Clinical documents faxed to [phone]. CM will continue to follow and will assist as needed with dc plans/needs. DCP REVIEW SUMMARY ANTICIPATED D/C DATE: 11/30/2020 EXPECTED LOS : 4 CASE STATUS: DCP Initiated INITIAL REVIEW: 11/26/2020 INITIAL REVIEWER: Herbert Rincon FINAL DISCHARGE DISPOSITION: : FINAL REVIEWER: FINAL REVIEW DATE: DCP [employer] Questions & Answers QUESTION: ANSWER : PATIENT: ANDREZ MEJIA ENCOUNTER: [id number] MEDICAL RECORD#: [id number] ADMISSION DATE: 11/26/2020 DISCHARGE DATE: ATTENDING MD: JANE WALLER : AGE: 55 MARITAL STATUS: S DC PLAN ID: [id number] FACILITY: [facility] PRINTED ON: 11/30/20 9:37 CT All edits/amendments must be made on the electronic document DICTATION DATE: 11/30/20936 DIALYSIS TECHNICIAN: PORSHA 11/30/20936 RPT#: [id number] DC DATE: STATUS: ADM IN [place] [id number] [place] [address] END OF REPORT
--- NOTE | 2020-11-30 10:53 | MORECARE ---
CASE MANAGEMENT DISCHARGE SUMMARY PATIENT: ANDREZ MEJIA UNIT: [id number] ADM DATE: 11/26/20 AGE: 55 : 67 SEX: M ROOM/BED: D.2220 AUTHOR: SURYA,DOC PHYSICIAN: REFERRING PHYSICIAN: JANE FIGUEROA MD DATE OF SERVICE: 11/30/20 Case Management Discharge Planning Summary COMMENTS ENTERED DATE: 11/30/20 9:27 CT COMMENT TYPE: Discharge Planning REVIEWER: Herbert Rincon CM spoke with Jessy of [employer], [facility] ([phone]). Jessy is in agreement that patient can return to SNF. Jessy stated that she will arrange transport. Clinical documents faxed to [phone]. CM will continue to follow and will assist as needed with dc plans/needs. DCP REVIEW SUMMARY ANTICIPATED D/C DATE: 11/30/2020 EXPECTED LOS : 4 CASE STATUS: DCP Initiated INITIAL REVIEW: 11/26/2020 INITIAL REVIEWER: Herbert Rincon FINAL DISCHARGE DISPOSITION: : FINAL REVIEWER: FINAL REVIEW DATE: DCP [employer] Questions & Answers QUESTION: ANSWER : PATIENT: ANDREZ MEJIA ENCOUNTER: [id number] MEDICAL RECORD#: [id number] ADMISSION DATE: 11/26/2020 DISCHARGE DATE: 11/30/2020 ATTENDING MD: JANE WALLER : AGE: 55 MARITAL STATUS: S DC PLAN ID: [id number] FACILITY: [facility] PRINTED ON: 11/30/20 10:53 CT All edits/amendments must be made on the electronic document DICTATION DATE: 11/30/20 105 AEROGRAPHER: DM 11/30/20 1053 RPT#: [id number] DC DATE:11/30/20 STATUS: DIS IN [id number] [place] [address] END OF REPORT
== END 2020-11-30 10:46 ==
LOC: D.ER 09:44 → D.MS 15:37 → OBSVTIME 15:38 → D.MS 17:50
PROVIDERS: Family Medicine; Psychiatry & Neurology Psychiatry; ADMIT Legal Medicine; ATTEND Legal Medicine
DX: R41.82 Altered mental status, unspecified (principal); F03.90 Unspecified dementia, unspecified severity, without behavioral disturbance, psychotic disturbance, mood disturbance, and anxiety; F20.9 Schizophrenia, unspecified; R45.1 Restlessness and agitation

== ENCOUNTER 2020-12-26 12:14 | Emergency (ER) | payer MEDICARE, MEDICAID ==
[~2020-12-26] VITALS: Ht 175.3 cm; Wt 113.6 kg
[~2020-12-26 12:14] MED LIST changes: +SEROQUEL200 MG PO
[2020-12-26 12:19] VITALS: Ht 175.3 cm; Wt 113.6 kg
[2020-12-26 13:17] LABS: BASOPHILS 0.6 % (0-2); EOSINOPHILS 0.8 % (0-7); HEMATOCRIT 39.2 % (42.0-54.0); HEMOGLOBIN 13.2 g/dL (13.5-17.5); LYMPHOCYTES 24.2 % (15-50); MCH 31.4 pg (26.0-34.0); MCHC 33.6 g/dL (31.0-37.0); MCV 93.5 fL (80.0-100.0); MEAN PLATELET VOLUME 7.7 fL (7.4-10.4); MONOCYTES 7.3 % (2-11); NEUTROPHILS 67.1 % (40-80); PLATELET COUNT 201 10x3/uL (130-400); RDW 13.9 % (11.5-14.5); WBC 6.7 10x3/uL (4.8-10.8)
[2020-12-26 13:37] LABS: CALC OSMOLALITY 268 mosm/kg (275-300); CALCIUM 8.6 mg/dL (8.5-10.1); CHLORIDE - SERUM 100 mmol/L (98-107); CREATININE - SERUM 0.9 mg/dL (0.6-1.3); GLUCOSE 100 mg/dL (74-106); POTASSIUM - SERUM 3.9 mmol/L (3.5-5.1); SODIUM 134 mmol/L (136-145); UREA NITROGEN 14 mg/dL (7-18); eGFR NON AFRICAN AMERICAN > 90 mL/min (90-120)
[2020-12-26 13:43] LABS: ALBUMIN 4.2 g/dL (3.4-5.0); ALKALINE PHOSPHATASE 93 U/L (30-120); ALT (SGPT) 18 U/L (10-68); BILIRUBIN - TOTAL 0.43 mg/dL (0.2-1.3); CARBAMAZEPINE (TEGRETOL) 8.5 ug/mL (4.0-12.0); MAGNESIUM - SERUM 1.8 mg/dL (1.8-2.4); PROTEIN - SERUM 7.3 g/dL (6.4-8.2); VALPROIC ACID (DEPAKOTE) 53.8 ug/mL (50.0-100.0)
[2020-12-26 15:45] VITALS: BP 132/80
[2020-12-26 15:58] LABS: BILIRUBIN NEGATIVE (NEGATIVE); KETONE NEGATIVE (NEGATIVE); NITRITE NEGATIVE (NEGATIVE); UROBILINOGEN NORMAL mg/dL (< 2)
[2020-12-26 16:07] LABS: BACTERIA FEW HPF (NONE SEEN); UDS - AMPHET NEGATIVE QUAL (NEGATIVE); UDS - BARB NEGATIVE QUAL (NEGATIVE); UDS - BENZO NEGATIVE QUAL (NEGATIVE); UDS - COCAINE NEGATIVE QUAL (NEGATIVE); UDS - OPIATE NEGATIVE QUAL (NEGATIVE); UDS - PCP NEGATIVE QUAL (NEGATIVE); UDS - THC NEGATIVE QUAL (NEGATIVE); WHITE CELLS - URINE 0-5 HPF (0-1)
== END 2020-12-26 16:10 ==
LOC: D.ER 12:14
PROVIDERS: Emergency Medicine
DX: R56.9 Unspecified convulsions (principal); F03.90 Unspecified dementia, unspecified severity, without behavioral disturbance, psychotic disturbance, mood disturbance, and anxiety